=== PATIENT | male | born 1990 | race Caucasian/White ===

== ENCOUNTER 2025-04-27 12:18 | Emergency (ER) | payer MEDICAID, SELFPAY ==
[2025-04-27 12:35] VITALS: BP 149/103; PULSE 80; RESP 18; TEMP 37.1; O2SAT 98; BMI 41.8
--- NOTE | 2025-04-27 13:08 | XR_ITS ---
Examination: Testicular sonography complete. Date and time: April 27, 2025, 1316 hrs. Indications: Left testicular and groin pain beginning 5 days ago. Technique And Findings: Grayscale sonographic images testes, assessment arterial inflow venous outflow Doppler spectral analysis carful analysis Right testis 3.8 cm epididymis 14 mm Arterial flow to the testicle. No testicular mass Left testis 3.6 cm epididymis 1.1 cm 3 mm left epididymal cyst Arterial flow testicle. No testicular mass Impression: No testicular torsion or testicular mass 3 x 3 mm left epididymal cyst
--- NOTE | 2025-04-27 13:08 | PD.EDRME ---
Rapid Medical Screening Exam RME Arrival date/time: 04/27/25 12:18 This is a 34-year-old male that comes in with complaints of left testicular pain. Patient was seen initially by his primary provider and states that he was getting get an ultrasound done on the of this month but if his pain got worse to come to the emergency room. Patient states that it hurts to touch on the left side of his testicle. Patient states that the pain also goes to his left groin area as well. Patient denies any urinary symptoms. Patient denies fever or chills. I have greeted and performed a focused initial assessment of this patient. Initial appropriate labs ordered at this time. A comprehensive ED assessment and evaluation of the patient and analysis of all test and completion of medical decision making process will be conducted by additional ED provider. Chief Complaint: General Adult/Misc Complain Time Seen by Provider: 04/27/25 12:44 Vital signs: Vital Signs Temperature 98.7 F 04/27/25 12:35 Pulse Rate 80 04/27/25 12:35 Respiratory Rate 18 04/27/25 12:35 Blood Pressure 149/103 H 04/27/25 12:35 Pulse Oximetry (%) 98 04/27/25 12:35 Oxygen Delivery Method Room Air 04/27/25 12:35
[2025-04-27 13:56] LABS: Collection Type, Urine Voided; Squamous Epithelial Cell,Urine 0 /hpf (0-5)
[2025-04-27 14:00] LABS: Basophils # (Auto) 0.1 Thou/mm3 (0.0-0.2); Basophils % (Auto) 1 % (0-2.5); Eosinophils # (Auto) 0.3 Thou/mm3 (0.0-0.5); Eosinophils % (Auto) 3 % (0-10); Hematocrit 49.5 % (41.0-53.0); Hemoglobin 18.0 g/dL (13.5-16.0); Immature Granulocytes Auto 0.05 Thou/mm3 (0.00-0.00); Lymphocytes # (Auto) 5.0 Thou/mm3 (1.0-4.8); Lymphocytes % (Auto) 42 % (10-50); Mean Corpuscular HGB Conc 36.4 g/dl (31.0-37.0); Mean Corpuscular Hemoglobin 31.7 pg (25.0-35.0); Mean Corpuscular Volume 87 fL (80-100); Monocytes # (Auto) 1.1 Thou/mm3 (0.0-0.8); Monocytes % (Auto) 10 % (0-12); Neutrophils # (Auto) 5.2 Thou/mm3 (1.8-7.7); Neutrophils % (Auto) 44 % (37-80); Nucleated Red Blood Cell # 0.00 Thou/mm3 (0.00-0.00); Nucleated Red Blood Cell % 0 /100 WBC (0); Platelet Count 239 Thou/mm3 (140-440); RDW Standard Deviation 36.7 fL (35.1-43.9); Red Blood Count 5.67 Miln/mm3 (4.50-5.90); White Blood Count 11.8 Thou/mm3 (3.8-10.6)
[2025-04-27 14:16] LABS: Bilirubin,Urine Negative (Negative); Blood,Urine Negative (Negative); Clarity,Urine Clear (Clear/Hazy); Color,Urine Lt-Yellow (Lt Yel-Yel); Culture Indicated,Urine Not Indicated; Glucose, Urine 4+ (Negative); Ketones,Urine Negative (Negative); Leukocyte Esterase,Urine Negative (Negative); Nitrite,Urine Negative (Negative); PH,Urine 6.5 (5.0-7.0); Protein,Urine Negative (Neg - Trace); RBC,Urine 4 /hpf (0-3); Specific Gravity,Urine 1.033 (1.001-1.035); Urobilinogen,Urine Negative mg/dL (0.0-1.0); WBC,Urine 1 /hpf (0-5)
[2025-04-27 14:18] VITALS: BP 126/81; PULSE 86; RESP 18; TEMP 37.2; O2SAT 96
[2025-04-27 14:27] LABS: Alanine Aminotransferase 72 U/L (10-49); Albumin, Serum 4.9 gm/dL (3.5-5.0); Albumin/Globulin Ratio 1.8 (1.2-2.2); Alkaline Phosphatase 101 U/L (46-116); Anion Gap 9 (7-16); Aspartate Amino Transferase 35 U/L (0-34); BUN/Creatinine Ratio 5 Ratio (12-20); Bilirubin,Total 1.0 mg/dL (0.3-1.2); Blood Urea Nitrogen < 5 mg/dL (9-23); Calcium 10.0 mg/dL (8.3-10.6); Calcium (Corrected) 10.0 mg/dL (8.5-10.1); Carbon Dioxide 31.5 mMol/L (20.0-31.0); Chloride 97 mMol/L (98-107); Creatinine (Component) 1.0 mg/dL (0.6-1.3); Estimated Creatinine Clearance 139.3 mL/min (>60); Globulin 2.8 gm/dL (2.3-3.5); Glucose 288 mg/dL (74-106); Osmolality,Calculated 282 (275-295); Potassium 4.2 mMol/L (3.4-5.1); Sodium 137 mMol/L (136-145); Total Protein 7.7 gm/dL (5.7-8.2); eGFR > 60 See Note
--- NOTE | 2025-04-27 14:41 | EDNOTE_ITS ---
ED Male Genitalurinary RME/HPI General Chief complaint: General Adult/Misc Complain Stated complaint: LEFT GROIN PAIN Time Seen by Provider: 04/27/25 12:44 Arrival date/time: 04/27/25 12:18 Limitations: no limitations RME / HPI RME / HPI Narrative: 04/27/25 12:18 This is a 34-year-old male that comes in with complaints of left testicular pain. Patient was seen initially by his primary provider and states that he was getting get an ultrasound done on the of this month but if his pain got worse to come to the emergency room. Patient states that it hurts to touch on the left side of his testicle. Patient states that the pain also goes to his left groin area as well. Patient denies any urinary symptoms. Patient denies fever or chills. I have greeted and performed a focused initial assessment of this patient. Initial appropriate labs ordered at this time. A comprehensive ED assessment and evaluation of the patient and analysis of all test and completion of medical decision making process will be conducted by additional ED provider. DR. WEEMS MAIN ED EVALUATION: 34 year old male presents to the ED for evaluation of left testicular pain with radiation to his left groin beginning 5 days ago. Reportedly had consulted with PCP who stated it may be a torsion and if the pain worsened to come to the ED for further evaluation. No injuries or trauma reported. Denies fevers, chills, nausea, vomiting, or urinary symptoms. No known modifying factors. Related Data Home Medications ?Medication ?Instructions ?Recorded ?Confirmed fluticasone propionate 50 2 spray intranasal QDAY 08/2409/14/21 mcg/actuation nasal spray,suspension loratadine 10 mg tablet 10 mg PO QDAY 09/14/2109/14 omeprazole 20 mg capsule,delayed 20 mg PO QDAY 1 09/14/21 release Previous Rx's ?Medication ?Instructions ?Recorded ibuprofen 800 mg tablet 800 mg PO TID PRN pain #30 t abs 10/20/19 meloxicam 7.5 mg tablet (Mobic) 7.5 mg PO QDAY #20 tab s 09/14/21 ibuprofen 600 mg tablet 600 mg PO QID PRN fever or p ain 05/11/22 #30 tabs nystatin 100,000 unit/gram topical 1 applic topical TI D #60 grams 06/13/22 powder ([facility]) albuterol sulfate 90 mcg/actuation 2 puff inhalation Q ID PRN 09/11/22 aerosol inhaler shortness of breath or wheez ing #8.5 grams azithromycin 250 mg tablet See Rx Instructions PO .COM PLEX #6 01/20/23 (Zithromax) tabs dextromethorphan-guaifenesin 10 10 ml PO Q4H PRN cough #120 mL 01/20/23 mg-100 mg/5 mL oral liquid (Adult Tussin Cough Congestion DM) cyclobenzaprine 10 mg tablet 10 mg PO HS PRN muscle sp asm #7 07/13/24 tabs ibuprofen 800 mg tablet 800 mg PO Q8H PRN pain #20 t abs 07/13/24 acetaminophen 500 mg tablet 500 mg PO Q4H PRN pain #30 tabs 04/27/25 ibuprofen 800 mg tablet 800 mg PO Q8H PRN pain #14 t abs 04/27/25 Allergies Allergy/AdvReac Type Severity Reaction Status Date / Time morphine Allergy Mild SOB Verified 07/13/24 03:25 Review of Systems Review of Systems Systems Reviewed: All systems reviewed, normal except as documented Past Medical History Past Medical History CARDIAC: Positive Cardiac Disorders; Negative Congestive Heart Failure RESPIRATORY: Positive Asthma; Negative Chronic Obstructive Pulmonary Disease (COPD) GENITOURINARY: Negative Renal Disease ENDOCRINE: Negative Diabetes Mellitus Type 1 or Diabetes Mellitus Type 2 HEMATOLOGIC: Negative Sickle Cell Disease Social History SMOKING STATUS: Current every day smoker SUBSTANCE USE: does not use ED Exam General Limitations: Present no limitations General appearance: Present alert and in no apparent distress Head Head exam: Present atraumatic, normocephalic and normal inspection Eye Eye exam: Present normal appearance, PERRL and EOMI ENT ENT exam: Present normal exam, normal oropharynx and mucous membranes moist Neck Neck exam: Present normal inspection, full ROM and trachea midline Chest Chest inspection: Present normal inspection and symmetric chest wall rise Respiratory Respiratory exam: Present normal lung sounds bilaterally Cardiovascular Cardiovascular exam: Present regular rate, normal rhythm and normal heart sounds Abdominal Exam Abdominal exam: Present soft and normal bowel sounds exam: Present other (the penis is retracted but exposable, no hernia, the epididymis of left testicle is tender to palpation, no clinical evidence of a torsion, normal penis and external genitalia ) Extremities Exam Extremities exam: Present normal inspection and full ROM Back Exam Back exam: Present normal inspection and full ROM Neurological Exam Neurological exam: Present alert, oriented X3 and CN II-XII intact Psychiatric Psychiatric exam: Present normal affect and normal mood Skin Skin exam: Present warm, dry, intact and normal color Course Quality Measures none Orders Category Date Time Status US testicular Stat Exams 04/27/25 13:08 Completed CBC Stat Lab 04/27/25 13:50 Completed Comprehensive Metabolic Panel Stat Lab 04/27/25 13:50 Completed Urinalysis, C/S if Indicated Stat Lab 04/27/25 13:52 Completed Vital Signs Vital signs: Vital Signs Temperature 98.7 F 04/27/25 12:35 Pulse Rate 80 04/27/25 12:35 Respiratory Rate 18 04/27/25 12:35 Blood Pressure 149/103 H 04/27/25 12:35 Pulse Oximetry (%) 98 04/27/25 12:35 Oxygen Delivery Method Room Air 04/27/25 12:35 Pulse ox is 98% on room air which is adequate. Urogenital - Male MDM Narrative MDM Narrative:: Tracee Marcum am scribing for and in the presence of Dr. Weems. Patient data External records reviewed:: [facility] previous records (I reviewed ED visit on 07/13/2024 ) Clinical information provided by:: patient Social determinants that could affect healthcare access:: none Patient has the following chronic illnesses:: Hypertension and diabetes How is presenting disease/condition affected by chronic disease/condition?: uneffected by Evaluation data The following diagnostics were reviewed and interpreted by me:: lab results and radiology exam(s) Lab and/or radiology exams considered but not ordered:: None Interpretation Summary: Ordering Physician: Inna Mann NP Date of Service: 04/27/25 Procedure(s): US testicular Accession Number(s): [id number] cc: Krishna Jim MD; Inna Mann NP~ Examination: Testicular sonography complete. Date and time: April 27, 2025, 1316 hrs. Indications: Left testicular and groin pain beginning 5 days ago. Technique And Findings: Grayscale sonographic images testes, assessment arterial inflow venous outflow Doppler spectral analysis carful analysis Right testis 3.8 cm epididymis 14 mm Arterial flow to the testicle. No testicular mass Left testis 3.6 cm epididymis 1.1 cm 3 mm left epididymal cyst Arterial flow testicle. No testicular mass Impression: No testicular torsion or testicular mass 3 x 3 mm left epididymal cyst Dictated By: Krishna Jim MD Signed By: <Electronically signed by Krishna Jim MD in OV> 04/27/25 1421 Medications / Prescriptions Medications or Prescriptions considered but not ordered:: None Medication administrations:: None Consultations Consultation(s) initiated? (list below): No Diagnosis Urogenital Male Differential Diagnosis: urinary tract infection, epididymitis and other (cyst, abscess, cellulitis ) Most likely diagnosis given after review of the tests above:: Acute epididymitis Admission Indicated Admission indicated?: not indicated Admission Request Was there a request for admission?: No Disposition Plan Disposition Plan: Discharge Discharge Attestation Discharge Attestation: The patient and all family members were given an opportunity to ask questions and understood the discharge instructions. Discharge instructions specifically effects, indications for sooner follow up or return to the emergency department, and the expected course of current diagnosis. Patient condition: Stable Discharge Plan Plan Patient Disposition: HOME (Self Care) Patient condition on transfer: Stable Prescriptions/Referrals Prescriptions/Med Rec: No Action ibuprofen 800 mg tablet 800 mg PO TID PRN (Reason: pain) Qty: 30 0RF ibuprofen 600 mg tablet 600 mg PO QID PRN (Reason: fever or pain) Qty: 30 0RF nystatin [Nyamyc] 100,000 unit/gram powder 1 applic topical TID Qty: 60 0RF meloxicam [Mobic] 7.5 mg tablet 7.5 mg PO QDAY Qty: 20 0RF omeprazole 20 mg capsule,delayed release(DR/EC) 20 mg PO QDAY Patient Comments: take 1 capsule by mouth once daily fluticasone propionate 50 mcg/actuation spray,suspension 2 spray INTRANASAL QDAY Patient Comments: instill 2 sprays into each nostril once daily loratadine 10 mg tablet 10 mg PO QDAY Patient Comments: take 1 tablet by mouth once daily azithromycin [Zithromax] 250 mg tablet See Rx Instructions .ROUTE .COMPLEX Qty: 6 0RF Rx Instructions: For 250 mg dose pack: take 500 mg today (day 1), then 250 mg for 4 days (days 2-5) dextromethorphan-guaifenesin [Adult Tussin Cough Congest DM] 10-100 mg/5 mL liquid 10 ml PO Q4H PRN (Reason: cough) Qty: 120 0RF albuterol sulfate 90 mcg/actuation HFA aerosol inhaler 2 puff inhalation QID PRN (Reason: shortness of breath or wheezing) Qty: 8.5 0RF cyclobenzaprine 10 mg tablet 10 mg PO HS PRN (Reason: muscle spasm) Qty: 7 0RF ibuprofen 800 mg tablet 800 mg PO Q8H PRN (Reason: pain) Qty: 20 0RF Problem List Clinical Impression: Acute epididymitis Patient/Caregiver Discharge Instructions Discharge Activity: activity as tolerated Education Materials: What are Epididymitis and Orchitis?, ED Epididymitis Print Language: [place] Stand Alone Forms: [place] Award Info., Patient Portal Info Letter
== END 2025-04-27 15:40 | disposition home or self-care (01) ==
PROVIDERS: Nurse Practitioner Family; Emergency Provider Emergency Medicine
DX: N45.1 Epididymitis (principal); N50.3 Cyst of epididymis
CPT/HCPCS: 36415; 76870; 80053; 81001; 85025; 99284